=== PATIENT | female | born 1955 | race Caucasian/White ===

== ENCOUNTER → 2016-12-24 | Outpatient (CLI) | payer BC ==
[2016-12-24 11:22] LABS: Blood Urea Nitrogen 15 mg/dL (7-17); Non-African American GFR(MDRD) >60 (>60 ml/min/1.73 sqM)
== END | disposition home or self-care (01) ==
LOC: LABWHC1 09:47
PROVIDERS: ATTEND Psychiatry & Neurology Neurology
DX: Z01.812 Encounter for preprocedural laboratory examination (principal)
CPT/HCPCS: 36415; 82565; 84520

== ENCOUNTER → 2016-12-24 | Outpatient (CLI) | payer BC | END | disposition home or self-care (01) | LOC: RADMRIMAIN 09:24 | PROVIDERS: ATTEND Psychiatry & Neurology Neurology | DX: Z53.9 Procedure and treatment not carried out, unspecified reason (principal) ==

== ENCOUNTER → 2017-01-01 | Outpatient (CLI) | payer BC ==
--- NOTE | 2017-01-01 12:20 | MR ---
EXAMINATION TYPE: MR brain/cspine wo/w DATE OF EXAM: 01/01/2017 COMPARISON: NONE HISTORY: memory loss, gait TECHNIQUE: Multiplanar, multisequence images of the brain and cervical spine is performed without and with IV co ntrast, utilizing 20 mL intravenous MultiHance gadolinium contrast is administered intravenously. De myelinating disease protocol with additional Sagittal Flair sequence performed. FINDINGS: BRAIN: T2 Lesions Present : Yes Approximate Number of Lesions: Greater than 20 Locations Identified : Periventricular Size of Reference Lesion(s): 1. 0.8 cm x 1.0 cm x 0.9 cm on axial image 22 and sagittal image 21 2 1.2 cm x 0.5 cm x 1.5 cm on axial image 21 and sagittal image 10 Enhancing Lesion(s) Present: No T1 Hypointense Lesion(s) Present: Yes Change from Prior: Increase in number Midline structures are unremarkable. There is a normal craniocervical junction. Echoplanar diffusion imaging is normal. There are normal vascular flow voids. The orbits are normal. There is no evidence of a CP angle mass lesion. There is no mass effect, midline shift or intracranial blood. There is a 1.4 cm retention cyst or polyp involving the right maxillary sinus. Following intravenous administration of gadolinium, I do not see evidence of abnormal enhancement. IMPRESSION: FINDINGS CONSISTENT WITH WORSENING MULTIPLE SCLEROSIS. CERVICAL SPINE: FINDINGS: The study is fairly markedly compromised by patient motion artifact. Prevertebral soft tissues are normal. Vertebral body height and alignment are maintained. Atlantoaxial relationships are normal. There is a normal craniocervical junction. There is a large amount of artifact within the spinal cord . No definite MS plaques are identified. At C2-C3, no definite abnormality is seen. At C3-C4, the intervertebral foramina are well maintained. There is a diffuse disc displacement mildl y effacing the thecal sac without cord contact. The facet and uncovertebral joints are normal. At C4-C5, there is disc space loss and hypertrophic spondylosis present anteriorly and posteriorly. T he intervertebral foramina appear reasonably well-maintained. There is a small, mixed spondylitic bar present posteriorly mildly deforming the thecal sac without cord contact. The facets are unremarkabl e. There is uncovertebral joint disease. At C5-C6, there is mild disc space loss. There is a broad-based disc displacement present deforming t he thecal sac without cord contact. The intervertebral foramina are narrowed bilaterally. The facets are unremarkable. There is uncovertebral joint disease. At C6-C7, the intervertebral foramina are well maintained. There is a broad-based disc displacement. The facet and uncovertebral joints are unremarkable. At C7-T1, no definite abnormality is seen. IMPRESSION: 1. I DO NOT SEE EVIDENCE OF MULTIPLE SCLEROSIS WITHIN THE CERVICAL CORD. 2. DEGENERATIVE CHANGE DESCRIBED. 3. NO SIGNIFICANT COMPRESSIVE DISCOPATHY. 4. BILATERAL INTERVERTEBRAL FORAMINAL NARROWING, C5-6.
== END | disposition home or self-care (01) ==
LOC: RADMRIMAIN 10:35
PROVIDERS: ATTEND Psychiatry & Neurology Neurology
DX: M99.71 Connective tissue and disc stenosis of intervertebral foramina of cervical region (principal); M47.812 Spondylosis without myelopathy or radiculopathy, cervical region; R41.3 Other amnesia; G35 Multiple sclerosis
CPT/HCPCS: 70553; 72156; A9577

== ENCOUNTER → 2018-05-07 | Outpatient (CLI) | payer BC ==
[2018-05-07 11:23] LABS: Blood Urea Nitrogen 14 mg/dL (7-17)
--- NOTE | 2018-05-07 13:17 | MR ---
EXAMINATION TYPE: MR lumbar spine wo con DATE OF EXAM: 05/07/2018 COMPARISON: None HISTORY: MS, Hearing loss, ext weakness TECHNIQUE: Multiplanar, multisequence images of the lumbar spine were acquired. L1-L2: Normal disc appearance without desiccation. No herniation, protrusion or disc bulging. No ca nal stenosis is present. Foramina are patent bilaterally. L2-L3: Posterior broad-based disc bulge causes minimal anterior mass effect on the thecal sac. No sig nificant foraminal encroachment or central stenosis. L3-L4: Posterior broad-based disc bulge causes mild anterior mass effect on the thecal sac. Facet art hropathy with hypertrophy of the ligamentum flavum causes posterior lateral mass effect on the thecal sac. Circumferential disc bulge encroaches mildly on the neural foramina, there is no significant ce ntral stenosis. L4-L5: Facet arthropathy with hypertrophy ligamentum flavum causes some posterior lateral mass effect on the thecal sac, there is a trefoil appearance to the thecal sac. Suspect some lateral recess sten osis. Circumferential extension of endplate disc complex results in some foraminal encroachment bilat erally. L5-S1: Facet arthropathy changes present. No evident disc herniation, spinal stenosis, significant fo raminal encroachment. Lumbar segments are intact. No paraspinal masses are identified. Conus medullaris has a normal appe arance. There is a spinal curvature present. Lumbar vertebral bodies show preserved height. There is normal alignment. Multilevel spondylosis, endplate discogenic marrow signal change compatible with de generative disc disease is noted. There is loss of disc height signal greatest at L4-5. Possible para pelvic cyst noted within the left kidney. IMPRESSION: Degenerative disc disease, facet arthropathy, multilevel foraminal encroachment. Spinal curvature. Co rrelate with plain film prior to any intervention.
--- NOTE | 2018-05-07 14:09 | MR ---
EXAMINATION TYPE: MR brain/cspine wo/w DATE OF EXAM: 05/07/2018 COMPARISON: Prior MR brain and cervical spine 01/01/2017 HISTORY: MS, Hearing loss, extremity weakness TECHNIQUE: Multiplanar, multisequence images of the brain and brainstem, cervical spine is performed without and with IV contrast, utilizing 10 mL intravenous Gadavist . FINDINGS: Diffusion weighted images demonstrate no evidence of a recent infarct or other diffusion ab normality. There is no extra-axial fluid collection or significant interval change white matter sign al abnormality. Confluent hyperintensities in the pericallosal, periventricular white matter compati ble with Dawsons fingers are again noted and show a similar size, distribution, number to prior exam, no abnormal enhancement following contrast administration. Additional scattered hyperintensities on inversion recovery T2-weighted sequences also show a similar appearance to prior exam. The ventricula r system and cisternal spaces are normal in size and appearance. The brain volume is age appropriate . Midline structures demonstrate normal morphology. The craniocervical junction appears within normal limits. Post contrast images demonstrate no abnormal enhancement. The dural venous sinuses appear pa tent. The visualized sinuses are clear and the globes are intact. IMPRESSION: Findings compatible with patient's history of multiple sclerosis, appearance is stable. Cervical spine MRI: Cervical vertebral bodies show stable height, alignment, and bone marrow signal. Multilevel spondylosis, degenerative disc changes are again noted. There is a hemangioma in T1 verteb ral body as on prior. Cervical cord signal shows a stable appearance. Mild anterolisthesis grade 1 C7 -T1. Stable multilevel foraminal encroachment. No abnormal enhancement. IMPRESSION: Stable exam, no significant interval change is evident.
== END | disposition home or self-care (01) ==
LOC: RADMRIMAIN 10:33
PROVIDERS: ATTEND Psychiatry & Neurology Neurology
DX: M51.36 Other intervertebral disc degeneration, lumbar region (principal); M46.96 Unspecified inflammatory spondylopathy, lumbar region; M43.8X6 Other specified deforming dorsopathies, lumbar region; G35 Multiple sclerosis; H91.93 Unspecified hearing loss, bilateral; R26.9 Unspecified abnormalities of gait and mobility
CPT/HCPCS: 82565; 84520; 70553; 72148; 72156; 36415; A9585

== ENCOUNTER → 2018-10-01 | Outpatient (CLI) | payer BC | END | disposition home or self-care (01) | LOC: LABWHC1 13:25 | PROVIDERS: ATTEND Psychiatry & Neurology Neurology | DX: Z51.81 Encounter for therapeutic drug level monitoring (principal); Z79.899 Other long term (current) drug therapy | CPT/HCPCS: 36415 ==

== ENCOUNTER → 2020-04-02 | Outpatient (CLI) | payer BC ==
--- NOTE | 2020-04-02 20:12 | MR ---
EXAMINATION TYPE: MR brain wo/w con DATE OF EXAM: 04/02/2020 COMPARISON: 05/07/2018 HISTORY: With MS Protocol Weakness CONTRAST: Standard multiplanar, multisequence MRI departmental protocol utilizing 9 mL intravenous Gadavist destiny olinium contrast. Diffusion images show no sign of acute cortical infarct. There is some cerebral cortical atrophy. The re is no mass effect. There is extensive coalescent increased signal in the periventricular white mat ter on the T2 and FLAIR images. There are numerous foci that measure up to 1.5 cm. There is no midlin e shift. There is no sign of intracranial hemorrhage. There is mucosal thickening in the paranasal si nuses. There are 3 mm foci of increased signal in the sheng bilaterally. Cerebellum appears intact. Th ere is no evidence of a posterior fossa mass. Sella turcica appears normal. There is no evidence of pathologic enhancement. There is normal contrast opacification of the venous sinuses. IMPRESSION: Extensive abnormal increased signal in the white matter adjacent to the lateral ventricles is consist ent with demyelinating disease and appears not significantly different than previous exam. No evidenc e of cortical infarct. Tiny foci of increased signal also in the brainstem at the level of the sheng n ot significantly different than previous exam. There is sinusitis increased compared to old exam.
== END | disposition home or self-care (01) ==
LOC: RADMRIMAIN 13:42
PROVIDERS: ATTEND Psychiatry & Neurology Neurology
DX: G35 Multiple sclerosis (principal); R90.82 White matter disease, unspecified
CPT/HCPCS: 70553; A9585

== ENCOUNTER → 2021-08-24 | Outpatient (CLI) | payer MEDICARE, OTHER ==
--- NOTE | 2021-08-25 03:18 | MR ---
EXAMINATION TYPE: MR brain wo/w con DATE OF EXAM: 08/24/2021 COMPARISON: None HISTORY: MS, weakness right side CONTRAST: Standard multiplanar, multisequence MRI departmental protocol images were obtained without contrast a nd with 8 mL intravenous Gadavist gadolinium contrast. There is mild cerebral atrophy. There is no mass effect or midline shift. There is no sign of intracr anial hemorrhage. Diffusion images show slight increased signal in the periventricular white matter. There are small areas of increased signal in the sheng. The T2 and FLAIR images show "lessen extensive increased signal in the periventricular white matter. Areas measure up to 1.5 cm in thickness. There is mucosal thickening in the frontal sinuses and anterior ethmoid sinuses. Skull base is intact . There is slight thinning of the corpus callosum. There is mucosal thickening in the bilateral maxillary sinuses. Contrast images show normal enhanceme nt of the venous sinuses. There is no pathologic enhancement. IMPRESSION: Extensive white matter changes consistent with advanced demyelinating disease and not significantly d ifferent than last exam. No evidence of cortical infarct. Sinusitis not significantly different than last exam.
== END | disposition home or self-care (01) ==
LOC: RADMRIMAIN 12:19
PROVIDERS: ATTEND Psychiatry & Neurology Neurology
DX: G37.9 Demyelinating disease of central nervous system, unspecified (principal); J32.9 Chronic sinusitis, unspecified
CPT/HCPCS: 70553; A9585

== ENCOUNTER → 2023-11-05 | Outpatient (CLI) | payer MEDICARE ==
--- NOTE | 2023-11-05 22:17 | MR ---
EXAMINATION TYPE: MR brain wo/w con DATE OF EXAM: 11/05/2023 10:48 AM CLINICAL INDICATION:Female, 68 years old with history of G35 MS; PH, MS follow-up. COMPARISON: 08/24/2021 TECHNIQUE: Multi planar, multi sequence imaging was performed through the brain including: T1, T2, In version recovery, susceptibility weighted imaging and gradient echo imaging and Diffusion weighted im aging. The patient was then given intravenous contrast and multi planar, T1 fat-saturation images wer e obtained. IV Contrast: 9.5 cc Gadavist FINDINGS: Redemonstration of white matter changes which are extensive throughout the deep white matte r. These are not significantly changed given differences in slice selection and technique. No evidenc e for active demyelination including no evidence for restricted diffusion or abnormal enhancement. Th ere is mild cerebral atrophy changes with proportional dilation of the ventricular system. The bone marrow signal is within normal limits. Paranasal sinuses and mastoid air cells: Mild to moderate high T2 signal paranasal sinus disease. Visualized orbits: Orbital contents are intact. IMPRESSION: 1. Redemonstration of extensive white matter changes some of which are orthogonal to the ventricles and can be seen in setting of multiple sclerosis. No evidence for active demyelination. 2. No evidence for restricted diffusion to suggest acute/subacute CVA.
== END | disposition home or self-care (01) ==
LOC: RADMRIMAIN 09:41
PROVIDERS: ATTEND Psychiatry & Neurology Neurology
DX: G93.89 Other specified disorders of brain (principal); G35 Multiple sclerosis
CPT/HCPCS: 70553; A9585